=== PATIENT | female | born 1965 | race African-American/Black ===

== ENCOUNTER → 2016-12-25 | Outpatient (CLI) | payer BC ==
--- NOTE | ~2016-12-25 | MY29 ---
[facility] A Service of [facility] RADIOLOGY TEXT RESULTS PATIENT: BEULAH DEAN LOCATION: [facility] : 63 UNIT #: [id number] AGE: [address]: Jose Anaya SEX: F ORDER DR: [id number] [place], [place] [address] [id number] O MR#: [id number] Acc #: [id number] NAME: BEULAH DEAN : 1965 SEX: F STUDY DATE/TIME: 12/25/2016 13:50 UNIT: [facility] ROOM: STUDY DESCRIPTION: [facility] SCREENING W/ CAD BILAT Attending Physician: Jose Anaya Referring Physician: Jose Anaya Ordering Physician: Galdino Anaya Pa-C Primary Care Physician: Jose Anaya MEDICAL IMAGING REPORT This report is preliminary unless electronic signature is present EXAM Digital screening mammogram with CAD INDICATIONS Routine screening. PROCEDURE Bilateral CC and MLO views obtained on a digital mammography unit FDA-approved CAD device utilized. COMPARISON 06/08/2013 FINDINGS Scattered fibroglandular density. There is no dominant mass or suspicious calcification. IMPRESSION Negative screening mammogram. Screening for 1 year suggested Patients over the age of 40 are entered into a reminder system with target due date for the next mammogram. A result letter will also be sent to the patient. BIRADS: 1 Negative Dictated by... Hesham Mabry M.D. THIS IS AN ELECTRONICALLY VERIFIED REPORT Hesham Mabry M.D. at 12/26/2016 7:14 AM [facility] A Service of [facility] RADIOLOGY TEXT RESULTS PATIENT: BEULAH DEAN LOCATION: [facility] : 63 UNIT #: [id number] AGE: [address]: Jose Anaya SEX: F ORDER DR: Ivania TD: 12/25/2016 20:14 JOB #: [id number] MEDICAL IMAGING REPORT Page 1 of 1 COPY
--- NOTE | ~2016-12-25 | CR63 ---
[facility] A Service of [facility] RADIOLOGY TEXT RESULTS PATIENT: BEULAH DEAN LOCATION: [facility] : 63 UNIT #: [id number] AGE: [address]: Jose Anaya SEX: F ORDER DR: [id number] [facility] [address] [place], [place] [address] [id number] O MR#: [id number] Acc #: [id number] NAME: BEULAH DEAN : 1965 SEX: F STUDY DATE/TIME: 12/25/2016 14:17 UNIT: [facility] ROOM: STUDY DESCRIPTION: CR Chest 2 View Attending Physician: Galdino Anaya Pa-C Referring Physician: Galdino Anaya Pa-C Ordering Physician: Galdino Anaya Pa-C Primary Care Physician: Galdino Anaya Pa-C MEDICAL IMAGING REPORT This report is preliminary unless electronic signature is present EXAM Chest, PA and lateral, 12/25/2016 HISTORY Cough and chest pain for 3 weeks, hypertension. FINDINGS PA and lateral examination of the chest upright shows a good expansion of the parenchyma with a normal distribution of the pulmonary vascularity. There is no indication of congestion, effusion, infiltrate, tumor, or nodular density. The pleural reflections and diaphragmatic contours are normal. The cardiac silhouette and mediastinal anatomy is within normal limits. IMPRESSION Normal chest. Dictated by... Deshawn Rivera M.D. THIS IS AN ELECTRONICALLY VERIFIED REPORT Deshawn Rivera M.D. at 12/26/2016 2:17 PM JIN/serena TD: 12/25/2016 20:37 JOB #: [id number] MEDICAL IMAGING REPORT Page 1 of 1 COPY
== END | disposition home or self-care (01) ==
LOC: CWCC 13:15 → CRAD 13:26
DX: Z12.31 Encounter for screening mammogram for malignant neoplasm of breast (principal); I10 Essential (primary) hypertension; R05 Cough
CPT/HCPCS: 71020; G0202